=== PATIENT | female | born 1955 | race Caucasian/White ===

== ENCOUNTER 2016-12-17 13:32 | Inpatient (IN) | payer OTHER ==
[~2016-12-17] VITALS: Ht 167.6 cm; Wt 73.1 kg
[2016-12-17] MEDS ORDERED: NTP TD (13:46)
[2016-12-17] MEDS ORDERED: CLOP75 PO (13:46)
[2016-12-17] MEDS ORDERED: LISI-660 PO (13:46)
[2016-12-17] MEDS ORDERED: NITR.4 SL (13:46)
[2016-12-17] MEDS ORDERED: CILO100T PO (13:46)
[2016-12-17] MEDS ORDERED: ALBU8HFA4 IH (13:46)
[2016-12-17] MEDS ORDERED: ASPI81 PO (13:46)
[2016-12-17] MEDS ORDERED: ONDANSETRON HCL 4 MG/2 ML VIAL IVP ONE (14:45)
[2016-12-17] MEDS ORDERED: ASPIRIN 81 MG CHEWABLE TABLET PO ONE (14:45)
[2016-12-17] MEDS ORDERED: MORPHINE SULFATE 2 MG/ML SYRINGE IVP ONE (14:45)
[2016-12-17] MEDS ORDERED: NITROGLYCERIN 2% (1 GM=INCH) PACKET TP ONE (14:45)
[2016-12-17 14:46] LABS: BASOPHILS % (AUTO) 0.1 % (0.0-2.0); EOSINOPHILS % (AUTO) 0.8 % (1.0-6.0); HEMATOCRIT 37.8 % (36-46); HEMOGLOBIN 12.3 g/dL (12.0-16.0); LYMPHOCYTES # (AUTO) 2.2 K/uL (1.0-4.8); LYMPHOCYTES % (AUTO) 27.3 % (22.0-44.0); MEAN CORPUSCULAR HEMOGLOBIN 28.1 pg (26.0-34.0); MEAN CORPUSCULAR HGB CONC 32.5 G/dL (31.0-37.0); MEAN CORPUSCULAR VOLUME 86 fL (80-100); MONOCYTES # (AUTO) 0.5 K/uL (0.1-1.0); MONOCYTES % (AUTO) 6.6 % (2.0-9.0); NEUTROPHILS # (AUTO) 5.3 K/uL (1.8-7.7); NEUTROPHILS % (AUTO) 65.2 % (40.0-70.0); PLATELET COUNT (AUTO) 402 K/uL (150-450); RED BLOOD CELL COUNT(AUTO) 4.38 MIL/uL (4.00-5.20); RED CELL DISTRIBUTION WIDTH 17.1 % (11.5-14.5); WHITE BLOOD COUNT (AUTO) 8.2 K/uL (4.5-11.0)
[2016-12-17 14:54] LABS: ANION GAP 4 mmol/L (8-16); CALCIUM, TOTAL 8.8 mg/dL (8.8-10.5); CARBON DIOXIDE 24 mmol/L (22-29); CHLORIDE 100 mmol/L (98-107); GLOMERULAR FILTR. RATE CALC 42 mL/min (>60); SODIUM SERUM 128 mmol/L (136-145); UREA NITROGEN, BLOOD 28 mg/dL (7-18)
[2016-12-17 14:55] LABS: INR 0.9 (0.9-1.1); PROTHROMBIN TIME 9.9 SEC (9.4-11.6)
[2016-12-17 15:11] LABS: ADD UA MICROSCOPIC NO; APPEARANCE,URINE CLEAR (CLEAR); GLUCOSE, URINE (UA) NEGATIVE (NEGATIVE); KETONES,URINE NEGATIVE (NEGATIVE); LEUKOCYTE ESTERASE ,URINE NEGATIVE (NEGATIVE); OCCULT BLOOD,URINE NEGATIVE (NEGATIVE); PH,URINE 5.5 (5.0-8.0); PROTEIN,URINE NEGATIVE (NEGATIVE)
[2016-12-17 15:19] LABS: ALANINE AMINOTRANSFERASE 27 U/L (12-78); ALBUMIN 3.8 g/dL (3.4-5.0); ASPARTATE AMINOTRANSFERASE 14 U/L (15-37); B-TYPE NATRIURETIC PEPTIDE < 5 pg/mL (0-100); CREATINE KINASE, TOTAL 157 U/L (26-192); TOTAL PROTEIN, SERUM 8.1 g/dL (6.4-8.2)
[2016-12-17 15:31] LABS: BILIRUBIN,TOTAL 0.1 mg/dL (0.1-1.0)
[2016-12-17 16:02] LABS: RBC MORPHOLOGY COMMENT ABNORMAL RBC MORPH
[2016-12-17] MEDS ORDERED: 0.9% SODIUM CHLORIDE 10 ML SYRINGE IVP PRN (17:00)
[2016-12-17] MEDS ORDERED: ACETAMINOPHEN 325 MG TABLET PO PRN ×2 (17:00→20:15)
[2016-12-17] MEDS ORDERED: ONDANSETRON HCL 4 MG/2 ML VIAL IVP PRN (17:00)
[2016-12-17 18:16] VITALS: BP 133/61
[2016-12-17] MEDS ORDERED: INFLUENZA VIRUS VACCINE QVS 2016-17 (3YR+)/PF 60 MCG/0.5 ML SYRINGE IM ONE (18:45)
[2016-12-17] MEDS ORDERED: PNEUMOCOCCAL VACCINE POLYVALENT 0.5 ML VIAL [PPSV23] IM ONE (18:45)
[2016-12-17 19:53] VITALS: BP 128/69
[2016-12-17] MEDS ORDERED: MAGNESIUM HYDROXIDE SUSPENSION 30 ML UDCUP PO PRN (20:15)
[2016-12-17] MEDS ORDERED: ALBUTEROL SULFATE 2.5 MG/0.5 ML NEB SOLUTION NEB PRN (20:15)
[2016-12-17] MEDS ORDERED: ZOLPIDEM TARTRATE 5 MG TABLET PO PRN (20:15)
[2016-12-17] MEDS ORDERED: METOPROLOL TARTRATE 25 MG TABLET PO SCH (21:00)
[2016-12-17] MEDS: MORPHINE SULFATE 2 MG/ML SYRINGE IVP PRN (21:02)
[2016-12-17] MEDS: SIMVASTATIN 40 MG TABLET PO SCH (21:45)
[2016-12-17] MEDS: DOCUSATE SODIUM 100 MG CAPSULE PO SCH (21:45)
[2016-12-17 23:33] VITALS: BP 110/61
[2016-12-18] VITALS (8 sets, daily range): BP systolic 93–118; BP diastolic 51–62
[2016-12-18] MEDS: HEPARIN SODIUM,PORCINE 5,000 UNITS/ML VIAL SQ SCH ×4 (01:00→23:44)
[2016-12-18] MEDS: MORPHINE SULFATE 2 MG/ML SYRINGE IVP PRN ×2 (05:16→22:35)
[2016-12-18] MEDS: OxyCODONE HCL/ACETAMINOPHEN 5-325 MG TABLET PO PRN ×2 (06:44→23:59)
[2016-12-18] MEDS: ASPIRIN 81 MG CHEWABLE TABLET PO SCH (08:14)
[2016-12-18] MEDS: DOCUSATE SODIUM 100 MG CAPSULE PO SCH ×2 (08:14→20:54)
[2016-12-18] MEDS: PANTOPRAZOLE SODIUM 40 MG DR TABLET PO SCH (08:14)
[2016-12-18] MEDS: CLOPIDOGREL BISULFATE 75 MG TABLET PO SCH (08:14)
[2016-12-18] MEDS ORDERED: NITROGLYCERIN 0.4 MG SUBLINGUAL TABLET #25 SL PRN (08:30)
[2016-12-18] MEDS ORDERED: METOPROLOL TARTRATE 25 MG TABLET PO SCH (09:00)
[2016-12-18] MEDS ORDERED: LISINOPRIL 5 MG TABLET PO SCH (09:00)
[2016-12-18] MEDS: NITROGLYCERIN 2% (1 GM=INCH) PACKET TP SCH ×4 (09:16→23:40)
[2016-12-18] MEDS: CILOSTAZOL 100 MG TABLET PO SCH (17:59)
[2016-12-18] MEDS: SIMVASTATIN 40 MG TABLET PO SCH (20:54)
[2016-12-19 00:27] VITALS: BP 120/58
[2016-12-19 04:30] VITALS: BP 121/53
[2016-12-19] MEDS: MORPHINE SULFATE 2 MG/ML SYRINGE IVP PRN (04:58)
[2016-12-19] MEDS: NITROGLYCERIN 2% (1 GM=INCH) PACKET TP SCH (06:00)
[2016-12-19 06:12] LABS: BASOPHILS # (AUTO) 0.02 K/uL (0.00-0.20); BASOPHILS % (AUTO) 0.3 % (0.0-2.0); EOSINOPHILS # (AUTO) 0.07 K/uL (0.00-0.70); EOSINOPHILS % (AUTO) 1.08 % (1.0-6.0); HEMATOCRIT 35.6 % (36-46); HEMOGLOBIN 11.6 g/dL (12.0-16.0); LYMPHOCYTES # (AUTO) 2.4 K/uL (1.0-4.8); LYMPHOCYTES % (AUTO) 38.2 % (22.0-44.0); MEAN CORPUSCULAR HEMOGLOBIN 28.4 pg (26.0-34.0); MEAN CORPUSCULAR HGB CONC 32.7 G/dL (31.0-37.0); MEAN CORPUSCULAR VOLUME 87 fL (80-100); MONOCYTES # (AUTO) 0.6 K/uL (0.1-1.0); NEUTROPHILS # (AUTO) 3.3 K/uL (1.8-7.7); NEUTROPHILS % (AUTO) 51.5 % (40.0-70.0); PLATELET COUNT (AUTO) 362 K/uL (150-450); RED CELL DISTRIBUTION WIDTH 17.4 % (11.5-14.5); WHITE BLOOD COUNT (AUTO) 6.3 K/uL (4.5-11.0)
[2016-12-19 06:31] LABS: ALBUMIN 3.2 g/dL (3.4-5.0); BILIRUBIN,TOTAL 0.3 mg/dL (0.1-1.0); CALCIUM, TOTAL 8.6 mg/dL (8.8-10.5); CREATININE 1.1 mg/dL (0.60-1.30); MAGNESIUM 2.2 mg/dL (1.80-2.40); TOTAL PROTEIN, SERUM 7.1 g/dL (6.4-8.2)
[2016-12-19 07:07] VITALS: BP 115/56
[2016-12-19] MEDS: DOCUSATE SODIUM 100 MG CAPSULE PO SCH ×2 (08:24→19:56)
[2016-12-19] MEDS: ASPIRIN 81 MG CHEWABLE TABLET PO SCH (08:24)
[2016-12-19] MEDS: CLOPIDOGREL BISULFATE 75 MG TABLET PO SCH (08:24)
[2016-12-19] MEDS: PANTOPRAZOLE SODIUM 40 MG DR TABLET PO SCH (08:24)
[2016-12-19] MEDS: HEPARIN SODIUM,PORCINE 5,000 UNITS/ML VIAL SQ SCH ×2 (08:24→16:00)
[2016-12-19] MEDS: CILOSTAZOL 100 MG TABLET PO SCH ×2 (08:25→17:30)
[2016-12-19 08:51] LABS: RBC MORPHOLOGY COMMENT ABNORMAL RBC MORPH
[2016-12-19] MEDS: METOPROLOL TARTRATE 25 MG TABLET PO SCH ×2 (10:07→19:56)
[2016-12-19 10:49] VITALS: BP 122/86
[2016-12-19] MEDS: OxyCODONE HCL/ACETAMINOPHEN 5-325 MG TABLET PO PRN ×2 (12:08→19:57)
[2016-12-19] MEDS ORDERED: METO25 PO (14:40)
[2016-12-19 19:42] VITALS: BP 136/74
[2016-12-19] MEDS: SIMVASTATIN 40 MG TABLET PO SCH (19:57)
== END 2016-12-19 21:15 | disposition home or self-care (01) | DRG 198 ==
LOC: EMS 13:33 → 5S 17:22
PROVIDERS: ADMIT Internal Medicine; ATTEND Internal Medicine
PROC: 3E0234Z Introduction of Serum, Toxoid and Vaccine into Muscle, Percutaneous Approach (ICD-10-PCS; principal; 2016-12-17)
DX: R07.9 Chest pain, unspecified (principal); I25.110 Atherosclerotic heart disease of native coronary artery with unstable angina pectoris; E87.1 Hypo-osmolality and hyponatremia; I10 Essential (primary) hypertension; J44.9 Chronic obstructive pulmonary disease, unspecified; I73.9 Peripheral vascular disease, unspecified; E11.9 Type 2 diabetes mellitus without complications; Z95.5 Presence of coronary angioplasty implant and graft; Z98.890 Other specified postprocedural states; Z87.891 Personal history of nicotine dependence; Z88.8 Allergy status to other drugs, medicaments and biological substances; Z79.82 Long term (current) use of aspirin; Z79.02 Long term (current) use of antithrombotics/antiplatelets; Z79.899 Other long term (current) drug therapy; Z23 Encounter for immunization
CPT/HCPCS: 83735; 87081; 90471; 93005; 93306; 96374; 96375; 99285; J1644; J2270; J2405